=== PATIENT | female | born 1945 | race Caucasian/White ===

== ENCOUNTER 2018-02-13 08:30 | Emergency (ER) | payer MEDICARE ==
[2018-02-13 08:37] VITALS: RESP 20
--- NOTE | 2018-02-13 09:01 | ED ---
Fall HPI - General Source: patient, RN notes reviewed, old records reviewed Mode of arrival: wheelchair <Kristy Lange - Last Filed: 02/13/18 10:29> <William Kohli - Last Filed: 02/13/18 10:34> - General Chief Complaint: Fall Stated Complaint: fall Time Seen by Provider: 02/13/18 08:44 - History of Present Illness Initial Comments: This Patient is a 73-year-old female presents emergency Department chief complaint of fall. She reports that she was running after her dog and tripped. She landed on the gravel with her face. She denies any leg pain, abdominal or chest pain. She reports that she was somewhat disoriented after the fall. Patient relates that she is not on any blood thinners. Reports some stiffness in her neck. She reports minor pain in her right shoulder and left hand. She has a bruise over her left hand. She does have full range of motion of her shoulder. (Kristy Lange) - Related Data Previous Rx's Medication Instructions Recorded Acetaminophen Tab [Tylenol Tab] 500 mg PO Q4H #20 tablet 02/13/18 Ibuprofen 600 mg PO TID #20 tablet 02/13/18 Allergies Allergy/AdvReac Type Severity Reaction Status Date / Time No Known Allergies Allergy Verified 02/13/18 08:37 Review of Systems ROS Other: All systems not noted in ROS Statement are negative. <Kristy Lange - Last Filed: 02/13/18 10:29> ROS Other: All systems not noted in ROS Statement are negative. <William Kohli - Last Filed: 02/13/18 10:34> ROS Statement: Those systems with pertinent positive or pertinent negative responses have been documented in the HPI. Past Medical History Past Medical History: No Reported History History of Any Multi-Drug Resistant Organisms: None Reported Past Surgical History: Hysterectomy, Orthopedic Surgery, Tonsillectomy Additional Past Surgical History / Comment(s): sinus surgery, bladder suspension Past Psychological History: No Psychological Hx Reported Smoking Status: Never smoker Past Alcohol Use History: None Reported Past Drug Use History: None Reported <Kristy Lange - Last Filed: 02/13/18 10:29> General Exam Limitations: no limitations General appearance: alert, in no apparent distress Head exam: Present: atraumatic, normocephalic, normal inspection Eye exam: Present: PERRL, EOMI. Absent: normal appearance (Patient has significant contusion over the right eye. Abrasions over the bridge of the nose and maxilla.), scleral icterus, conjunctival injection, periorbital swelling ENT exam: Present: mucous membranes moist, other (Patient has some minor bleeding from the right nare. Abrasion of bridge of nose. ). Absent: normal exam Neck exam: Present: normal inspection. Absent: tenderness, meningismus, lymphadenopathy Respiratory exam: Present: normal lung sounds bilaterally. Absent: respiratory distress, wheezes, rales, rhonchi, stridor Cardiovascular Exam: Present: regular rate, normal rhythm, normal heart sounds. Absent: systolic murmur, diastolic murmur, rubs, gallop, clicks GI/Abdominal exam: Present: soft, normal bowel sounds. Absent: distended, tenderness, guarding, rebound, rigid Extremities exam: Present: normal inspection, full ROM, normal capillary refill , other (2cm bruise over dorsum L hand, Full ROM. NV intact. ). Absent: tenderness, pedal edema, joint swelling, calf tenderness Back exam: Present: normal inspection Neurological exam: Present: alert, oriented X3, CN II-XII intact Psychiatric exam: Present: normal affect, normal mood Skin exam: Present: warm, dry, intact, normal color. Absent: rash <Kristy Lange - Last Filed: 02/13/18 10:29> <William Kohli - Last Filed: 02/13/18 10:34> - General Exam Comments Initial Comments: Patient is a 73-year-old female. Alert and oriented. No acute distress. ( Kristy Lange) Course <Kristy Lange - Last Filed: 02/13/18 10:29> <William Kohli - Last Filed: 02/13/18 10:34> Vital Signs 02/13/18 08:33 Temperature 97.7 F Pulse Rate 67 Respiratory 20 Rate Blood Pressure 143/81 O2 Sat by Pulse 98 Oximetry - Reevaluation(s) Reevaluation #1: 02/13/18 10:34 PA supervision: I proceeded [id number] evaluation the patient did discuss findings with family members. Patient is demonstrating metoprolol with a right forehead as well as some ecchymosis around the right orbit and abrasions to the face and contusions. We did discuss the progression of the healing. I did caution her on exposure to sunlight. I did review the imaging and reports I do agree with the assessment and plan. (William Kohli) Medical Decision Making - Radiology Data Radiology results: report reviewed <Kristy Lange - Last Filed: 02/13/18 10:29> <William Kohli - Last Filed: 02/13/18 10:34> - Medical Decision Making 73-year-old female presents emergency Department after fall. Patient has significant contusion of her right orbit and right eye swelling. Patient has no other significant injury such a with the fall. CT brain and C-spine was completed CT facial bones. Evidence of contusion and soft tissue swelling. No evidence of a sinus cyst. Patient has had history of sinus surgery. I also noted that her computed tomography scan had chronic small vessel ischemia. Patient informed of all these results. At this time patient's wounds were cleaned and bandages were placed over top. Nose bleeding has stopped at this time. Patient informed to ice the area as much as possible. She should expect to have a black eye was time is progressing. Patient understands treatment plan will comply. Return parameters were discussed. (Kristy Lange) - Radiology Data fracture dislocation evident cervical spine. No acute intracranial hemorrhage mass effect diminishing seen. Diminished attenuation over the period ventricular white matter suggestive of microvascular changes and small vessel disease. Scalp hematoma and soft tissue swelling involving the cutaneous tissues of the right orbital region.Sequela of chronic sinusitis with me case retention cyst of the floor of the right maxillary antrum measuring 1.27 days. Soft tissue swelling and hematoma over the subcutaneous of right orbital supraorbital region. No facial fractures or skull fracture. (Kristy Lange) Disposition Is patient prescribed a controlled substance at d/c from ED?: No When asked, does pt state using other controlled substances?: No If prescribed controlled substance>3 days was MAPS reviewed?: No If opioid is for acute pain is fill amount 7 days or less?: No If Rx opioid, was Start Talking consent form obtained?: No Time of Disposition: 10:24 <Kristy Lange - Last Filed: 02/13/18 10:29> <William Kohli - Last Filed: 02/13/18 10:34> Clinical Impression: Fall, Eye contusion Disposition: HOME SELF-CARE Condition: Good Instructions: Fall Prevention for Older Adults (ED), Hematoma (ED) Additional Instructions: Patient advised to take Motrin time for pain. She'll be monitored after an injury there is any signs of altered mental status return to the emergency department for further evaluation. Patient should rest and take it easy. Motrin Tylenol for pain. Apply ice over the swelling throughout the day. Prescriptions: Acetaminophen Tab [Tylenol Tab] 500 mg PO Q4H #20 tablet Ibuprofen 600 mg PO TID #20 tablet Referrals: Arturo Isaac MD [Primary Care Provider] - 1-2 days
--- NOTE | 2018-02-13 10:04 | CT ---
EXAMINATION TYPE: CT brain supine wo con DATE OF EXAM: 02/13/2018 COMPARISON: None HISTORY: Fall CT DLP: 1579.8 mGycm Automated exposure control for dose reduction was used. TECHNIQUE: CT scan of the head and cervical spine are performed without contrast. FINDINGS: There is no acute intracranial hemorrhage, mass effect, or midline shift identified. The ventricles and sulci are symmetrical. Diminished attenuation along the periventricular white matter of both cerebral hemispheres are consistent with microvascular changes and small vessel disease. Sca lp soft tissue swelling and cutaneous hematoma involving the right frontal region without underlying skull fracture. The globes are intact . Mucosal retention cyst at the right maxillary antrum. Cervical spine is visualized in its entirety from C1 through upper thoracic levels and demonstrates s atisfactory alignment without evidence of acute fracture or dislocation. Prevertebral soft tissue ap pears within normal limits. The C1-C2 articulation is unremarkable. Arthritic changes are noted wit h loss of height at the C5-C6 and C6-C7 intervertebral disc spaces with osteophytic spur formation. N o acute compression deformity. Visualized portions of the lung apices are clear. Vascular calcificati on within the carotids bilaterally. IMPRESSION: There is no acute fracture or dislocation evident in the cervical spine. No acute intracranial hemorrhage, mass effect, or midline shift is seen. Diminished attenuation along the periventricular white matter of both cerebral hemispheres suggestive of microvascular changes and small vessel disease. Scalp hematoma and soft tissue swelling involving the cutaneous tissues of the right orbital region.
--- NOTE | 2018-02-13 10:08 | CT ---
EXAMINATION TYPE: CT facial bones wo con DATE OF EXAM: 02/13/2018 COMPARISON: None HISTORY: Fall CT DLP: 609.4 mGycm Automated exposure control for dose reduction was used. TECHNIQUE: CT scan of the sinuses is performed without contrast, axial images are obtained, coronal r eformatted images are also reviewed. FINDINGS: Mucous retention cyst measuring 1.2 cm at the right maxillary antrum. No facial fractures. Preservation of the zygomatic arches and pterygoid plates. The ostiomeatal complex is patent bilatera lly on the coronal images. Visualized portion of mastoid air cells show no abnormal opacification. The globes are intact bilate rally. Scalp soft tissue swelling and hematoma involving the cutaneous tissues of the right orbital and supraorbital region. Multiple artifact from dental fillings. IMPRESSION: Sequela of chronic sinusitis with a mucous retention cyst at the floor of the right maxil mickey antrum measuring 1.2 cm. Scalp soft tissue swelling and hematoma involving the cutaneous tissues of the right orbital and supraorbital region. No facial fractures or skull fractures.
[2018-02-13 10:41] VITALS: BP 136/79; PULSE 68; TEMP 97.8
== END 2018-02-13 10:30 | disposition home or self-care (01) ==
LOC: EC 08:30
DX: S05.11XA Contusion of eyeball and orbital tissues, right eye, initial encounter (principal); S60.222A Contusion of left hand, initial encounter; S13.4XXA Sprain of ligaments of cervical spine, initial encounter; M25.511 Pain in right shoulder; W01.0XXA Fall on same level from slipping, tripping and stumbling without subsequent striking against object, initial encounter; Y93.02 Activity, running; Y92.89 Other specified places as the place of occurrence of the external cause
CPT/HCPCS: 70450; 70486; 72125; 99284